=== PATIENT | female | born 1950 | race Caucasian/White ===

== ENCOUNTER 2020-12-25 17:01 | Emergency (ER) | payer MEDICARE ==
[~2020-12-25] VITALS: Ht 154.9 cm; Wt 59.0 kg
[2020-12-25] MEDS ORDERED: DECADRON4 M1 PO (17:30)
[2020-12-25] MEDS ORDERED: AZITHROMYCIN250 MG PO (17:30)
[2020-12-25] MEDS ORDERED: ZOFRAN4 MG SL (17:32)
== END 2020-12-25 17:45 | disposition home or self-care (01) ==
LOC: ER 17:32
DX: U07.1 COVID-19 (principal); R06.00 Dyspnea, unspecified; R05 Cough; R11.2 Nausea with vomiting, unspecified; R53.81 Other malaise; Z85.6 Personal history of leukemia
CPT/HCPCS: 99283

== ENCOUNTER 2025-07-17 12:56 | Emergency (ER) | payer MEDICARE ==
[~2025-07-17] VITALS: Ht 154.9 cm; Wt 54.4 kg
[~2025-07-17 12:56] MED LIST: AZITHROMYCIN250 MG PO; DECADRON4 M1 PO; ZOFRAN4 MG SL
[2025-07-17 14:10] VITALS: PULSE 87; RESP 20; TEMP 97.8
[2025-07-17] MEDS: SODIUM CHLORIDE 0.9% 1000ML 1,000 ML IV STA (15:48)
[2025-07-17] MEDS: ONDANSETRON HCL INJ 2MG/ML 2ML 2 MG/ML VIAL IV STA (15:48)
[2025-07-17 16:01] LABS: BASOPHILS % 0.0 % (0.0-1.0); EOSINOPHILS % 0.0 % (0.0-6.0); LYMPHOCYTES % 97.0 % (18.0-39.1); MONOCYTES % 1.1 % (4.4-11.3); NEUTROPHILS % 1.7 % (38.7-80.0); RED CELL DISTRIBUTION WIDTH 14.3 % (11.7-14.4)
[2025-07-17 16:09] LABS: LEUKOCYTE ESTERASE ,URINE SMALL (NEGATIVE); PROTEIN,URINE DIPSTICK NEGATIVE (NEGATIVE)
[2025-07-17 16:10] LABS: URINE UROBILINOGEN 0.2 mg/dL (0.2 - 1)
[2025-07-17 16:11] LABS: EPITHELIAL CELLS,URINE FEW /LPF
[2025-07-17 16:18] LABS: INR 1.15
[2025-07-17 16:27] LABS: EST GLOMERULAR FILTRATION RATE 65.0 ML/MIN (>=60)
[2025-07-17 16:50] LABS: BAND NEUTROPHILS % (MANUAL) 3 %; LYMPHOCYTES % (MANUAL) 91 % (19-48); NEUTROPHILS % (MANUAL) 2 % (40-74); REACTIVE LYMPHOCYTES 4
[2025-07-17 16:51] LABS: PLATELET ESTIMATE SLIGHTLY DECREASED; PLATELET MORPHOLOGY COMMENT NORMAL
[2025-07-17 16:52] LABS: RBC MORPHOLOGY COMMENT NORMAL
[2025-07-17] MEDS ORDERED: CEFDINIR300 MG PO (17:27)
[2025-07-17 17:37] VITALS: BP 130/85; PULSE 78; RESP 18; O2SAT 100
== END 2025-07-17 17:39 | disposition home or self-care (01) ==
LOC: ER 14:58
DX: R53.81 Other malaise (principal); C91.10 Chronic lymphocytic leukemia of B-cell type not having achieved remission; N39.0 Urinary tract infection, site not specified; R61 Generalized hyperhidrosis
CPT/HCPCS: 36415; 71045; 80053; 81001; 83735; 84443; 84484; 85025; 85610; 85730; 99283; J2405; J2470; J7030